=== PATIENT | female | born 1950 | race Caucasian/White ===

== ENCOUNTER 2022-03-14 07:11 | Day surgery (SDC) | payer MEDICARE, MEDICAID ==
[~2022-03-14] VITALS: Ht 170.2 cm; Wt 95.3 kg
[~2022-03-14 07:11] MED LIST: AML5T PO; ASPI-543 PO; INSU100I61 SC; LOSA25TA38 PO; MAGN400T40 PO; METF-929 PO; POTA-264 PO; SEMA3TAB PO; SOTA80TA62 PO; UMEC1AER IN
[2022-03-14] MEDS ORDERED: LIDOCAINE 2%HCL (LOCAL ANESTH.) INJ 10ml MDV ONE (08:30)
[2022-03-14] MEDS ORDERED: IODIXANOL 320MG/ML 100ML BTL IV ONE ×2 (08:30→09:01)
[2022-03-14] MEDS ORDERED: HEPARIN SODIUM (PORCINE) 5000 UNITS/ML 1ML VIAL ONE (08:36)
[2022-03-14] MEDS ORDERED: MIDAZOLAM HCL 2MG/2ML 2ml VIAL (1mg/ml) ONE (08:36)
[2022-03-14] MEDS ORDERED: fentaNYL CITRATE 100 MCG/2 ML VL ONE (08:36)
[2022-03-14] MEDS ORDERED: VERAPAMIL 2.5MG/ML INJ 2ML VIAL IV ONE (08:36)
[2022-03-14] MEDS ORDERED: ANGIOMAX 250 MG VIAL IV ONE (08:36)
[2022-03-14] MEDS ORDERED: SODIUM CHL 0.9% 0 ML ONE (08:36)
== END 2022-03-14 11:53 | disposition home or self-care (01) ==
LOC: CATH 07:11
PROVIDERS: ATTEND Internal Medicine Cardiovascular Disease
DX: I25.10 Atherosclerotic heart disease of native coronary artery without angina pectoris (principal); I10 Essential (primary) hypertension; E11.9 Type 2 diabetes mellitus without complications; E78.5 Hyperlipidemia, unspecified; E66.9 Obesity, unspecified; F41.9 Anxiety disorder, unspecified; F32.9 Major depressive disorder, single episode, unspecified; Z95.5 Presence of coronary angioplasty implant and graft; Z79.899 Other long term (current) drug therapy; Z20.822 Contact with and (suspected) exposure to COVID-19
CPT/HCPCS: 93458; C1769; C1887; C1894; J1644; J2001; J2250; J3010; J7030; Q9967; U0003; 99152; 99153